=== PATIENT | female | born 1995 | race Caucasian/White ===

== ENCOUNTER 2017-01-30 01:05 | Emergency (ER) | payer BC ==
[~2017-01-30] VITALS: Ht 170.2 cm; Wt 152.1 kg
[~2017-01-30 01:05] MED LIST: DOXYCYCLINE HY100 MG PO; FLUOXETINE HCL10 MG PO; NO MEDS; OCUFLOX 0.100 DROP/5 BOTH EYES; PREDNISONE10 MG PO; SPRINTEC1 EACH PO
[2017-01-30 02:36] LABS: MCH 30.5 PG (29.0-34.0); MCHC 34.2 G/DL (30.0-36.0); MCV 89.2 FL (83-99); MEAN PLAT.VOLUME 9.6 uM^3 (9.5-12.4); PLATELET COUNT 228 K/uL (156-360); RBC DIS.WIDTH-CV 11.7 % (11.8-14.6); RBC DIS.WIDTH-SD 37.3 % (39-53); RED BLOOD COUNT 4.26 M/uL (3.80-5.20); WHITE BLOOD COUNT 10.5 K/uL (4.1-10.2)
[2017-01-30 02:54] LABS: CHLORIDE 104 mEq/L (99-109); SODIUM 136 mEq/L (136-147)
[2017-01-30 02:56] LABS: GLUCOSE 97 mg/dL (70-99)
[2017-01-30 02:58] LABS: ANION GAP 9 MEQ/L (2-14)
[2017-01-30 03:00] LABS: GFR ESTIMATE (CALCULATED) > 59 mL/min/
[2017-01-30 03:01] LABS: UREA NITROGEN (BUN) 14 mg/dL (9-23)
[2017-01-30 03:05] LABS: INTERNAL CONTROL VALID? YES; MONOSPOT (MONONUCLEOSIS SEROL) NEGATIVE
[2017-01-30] MEDS ORDERED: AUGMENTIN875 MG PO (03:34)
[2017-01-30 03:43] VITALS: BP 152/76
[2017-01-30 12:27] LABS: LYME DISEASE SEROLOGY SCREEN NEGATIVE (NEGATIVE)
[2017-02-05 12:32] LABS: Rickettsia (RMSF) IgG Not Detected (Not Detected); Rickettsia (RMSF) IgM Not Detected (Not Detected)
== END 2017-01-30 03:46 | disposition home or self-care (01) ==
LOC: EME 01:05
PROVIDERS: Emergency Medicine
DX: J01.90 Acute sinusitis, unspecified (principal); J06.9 Acute upper respiratory infection, unspecified
CPT/HCPCS: 80048; 85027; 86308; 86618; 86757 90; 87040; 87651 90; 99281; 99284